=== PATIENT | male | born 1985 | race Caucasian/White ===

== ENCOUNTER 2016-12-01 15:00 | Outpatient (RCR) | payer OTHER | END 2016-12-10 | disposition home or self-care (01) | LOC: MKS.ESL.PT | DX: M23.611 Other spontaneous disruption of anterior cruciate ligament of right knee (principal) ==

== ENCOUNTER → 2017-11-04 | Outpatient (CLI) | payer OTHER | LOC: COL.RAD 14:15 | DX: S43.431A Superior glenoid labrum lesion of right shoulder, initial encounter (principal); M94.8X1 Other specified disorders of cartilage, shoulder; M12.811 Other specific arthropathies, not elsewhere classified, right shoulder | CPT/HCPCS: A9585; Q9967 ==